=== PATIENT | male | born 1980 | race Caucasian/White ===

== ENCOUNTER 2019-03-26 05:28 | Emergency (ER) | payer OTHER ==
[~2019-03-26] VITALS: Ht 172.7 cm; Wt 90.7 kg
[2019-03-26 05:36] VITALS: BP 143/94
--- NOTE | 2019-03-26 05:41 | NUR ---
PT AMBULATED TO BED 3.
--- NOTE | 2019-03-26 06:09 | NUR ---
C/O ABSCESS TO RIGHT FOREARM ARM AND LEFT KNEE. RIGHT FOREARM DRAINING, 3", RED, EDEMA. LEFT KNEE, NO DRAINGAGE, RED. AFEBRILE. 5/10 PAIN. VSS. EMRD TO SEE PATIENT. HX: HTN, GLAUCOMA, ASTHMA
--- NOTE | 2019-03-26 07:31 | NUR ---
Pt report given to ANIVAL LYLES. Transfer of care at this time.
--- NOTE | 2019-03-26 07:33 | NUR ---
PT AAOX4. FULL CLEAR SPEECH. ABSCESS TO RFA NOTED, WARM TO TOUCH, +ROM TO RFA. PT C/O 2/10 PAIN AT THIS TIME. PT DENIES FEVER, N/V/D. NO SIGNS AND SYMPTOMS OF DISTRESS NOTED. WILL CONTINUE TO MONITOR.
[2019-03-26] MEDS ORDERED: CEPHALEXIN 500 MG CAP PO ONE (07:45)
--- NOTE | 2019-03-26 07:45 | NUR ---
DR MELENDEZ AT BEDSIDE FOR PT EVALUATION
--- NOTE | 2019-03-26 08:15 | NUR ---
APPLIED DRESSING TO RIGHT ARM WITHOUT ANY ISSUES
--- NOTE | 2019-03-26 08:20 | NUR ---
EMT AT BEDSIDE FOR WOUND CARE ORDERED.
[2019-03-26 08:21] VITALS: BP 142/96
== END 2019-03-26 08:21 | disposition home or self-care (01) ==
LOC: MED 05:28
DX: L02.413 Cutaneous abscess of right upper limb (principal); L03.113 Cellulitis of right upper limb; J45.909 Unspecified asthma, uncomplicated; I10 Essential (primary) hypertension; Z88.8 Allergy status to other drugs, medicaments and biological substances; Z88.2 Allergy status to sulfonamides
CPT/HCPCS: 99283